=== PATIENT | female | born 1940 | race Caucasian/White ===

== ENCOUNTER 2017-02-18 11:19 | Emergency (ER) | payer MEDICARE ==
[~2017-02-18] VITALS: Ht 165.1 cm; Wt 76.4 kg
[~2017-02-18 11:19] MED LIST: ALBU18HF INH; ALBU2.5V4 INHALATION; ASPI-973 PO; ATEN25TA PO; ATOR20TA65 PO; FLUT12AE10 INH; FUR20 PO; HYDR-656 PO; LISI-567 PO; LORA0.5T PO; MAGN400T4 PO; RANI150C4 PO; TIOT18CA3 IH
[2017-02-18 11:21] VITALS: BP 180/110; PULSE 71; RESP 18; O2SAT 100
[2017-02-18] MEDS ORDERED: Ondansetron 2 mg/mL 2 mL Inj IVPUSH ONE (11:55)
--- NOTE | 2017-02-18 11:59 | ED.REPORT ---
HPI-Chest Pain 40 and Over Date of Service Feb 18, 2017 ED Provider: Jacinto Polk MD The patient is a 76 yo female with remote history of Takotsubo cardiomyopathy ( 2009), HTN, asthma, anxiety, and HLD who presentsto the ED for 3-day history of intermittent chest pressure and SOB. Patient reports that she has not been feeling well for the past 3-4 days and has had intermittent left-sided chest pressure. She is unsure how long each chest pressure episode lasts, but it usually resolves spontaneously. However, it is worse this morning. It does not radiate else where and rates 7/10. She took an aspirin 81mg and Nitro from her prior to arrival, which gave her mild relief, but the chest pressure still lingers. Associated symptoms include nausea, SOB, and dry cough. She admits to tingling in her extremities at baseline, but her feet feel "hot and tingling" currently. She denies diaphoresis, vomiting, headache, dizziness, palpitations, wheezes, edema, fever, or chills. She does have a history of anxiety and takes Ativan 0.5mg BID. Patient admits to similar symptoms and subsequently underwent a stress test in [place], which was normal. She denies history of PE/DVT or recent travel. Nursing Notes Stated Complaint: CHEST PAIN Chief Complaint: Chest Pain Nursing Notes Reviewed: Yes Allergies: Coded Allergies: amitriptyline (Verified Allergy, Unknown, 02/18/17) citalopram (Verified Allergy, Unknown, 02/18/17) naproxen (Verified Allergy, Unknown, 02/18/17) Scheduled Aspirin (Aspirin) 81 Mg Tablet 81 MG PO DAILY Atenolol (Atenolol) 25 Mg Tablet 12.5 MG PO DAILY Atorvastatin Calcium (Atorvastatin Calcium) 20 Mg Tablet 20 MG PO HS Furosemide (Furosemide) 20 Mg Tab 20 MG PO DAILY Lisinopril (Lisinopril) 20 Mg Tablet 40 MG PO DAILY Magnesium Oxide (Magnesium Oxide) 400 Mg Tablet 400 MG PO DAILY Ranitidine (Ranitidine) 150 Mg Capsule 150 MG PO DAILY Tiotropium [place] (Spiriva) 18 Mcg Cap.w.dev 18 MCG IH DAILY Scheduled PRN Albuterol Neb Soln (Albuterol Neb Soln) 2.5 Mg/3 Ml Vial.neb 2.5 MG INHALATION Q4H PRN PRN For Shortness of Breath Albuterol Sulfate (Ventolin HFA Inhaler) 200 Puff/18 Gm Inhaler 1 PUFF INH Q4 PRN PRN For Wheezing Fluticasone Propionate (Flovent HFA 220 mcg) 12 Gm Aer.w.adap 2 PUFFS INH BID PRN PRN For Shortness of Breath Lorazepam (Lorazepam) 0.5 Mg Tablet 0.5-1 MG PO BID PRN PRN For Anxiety hydrOXYzine Hcl (HydrOXYzine Hcl) 25 Mg Tablet 25 MG PO q6 hours PRN PRN For Itching General Time Seen by MD: 11:45 Chief Complaint Chest pressure Hx Obtained From: Patient, Spouse Arrived By: Walk-in Sudden in Onset?: Yes Onset Occurred: Just prior to arrival Symptom Duration: Intermittent Location: : Chest left Quality: Pressure Radiation: : Does not radiate Migration/Movement: Reports: None Severity: Current: Pain level 7 out of 10 Severity: Maximum: Pain level 10 out of 10 Associated with: Reports: Cough, non-productive, Nausea, Numbness/Tingling, Shortness of Breath, Denies: Diaphoresis, Dizziness, Fatigue, Fever, Palpitations, Vomiting, Wheezing Pertinent Negative: Pt denies other symptoms Relieved by: Nitroglycerin at home x 1 Pertinent Negative: Exacerbated by nothing Recent Healthcare: No recent hospitalization, Recent doctor visit Similar Sx Previous: Yes Risk Factors )( CAD Risk Stratification Hyperlipidemia Hypertension Risk factors reviewed )( PE Risk Stratification No risk factors Aspirin for ACS Aspirin Last 24 Hrs: 81 mg Past Medical History Past Medical History Notes: PCP: Dr. Tatiana Arambula Past Medical History Takotsubo syndrome Anxiety Reports: Asthma, COPD, Hypertension Past Surgical History Denies Smoking History Former Smoker (quit in 1974) Social History Alcohol Use: Denies alcohol use Drug Use: Denies drug use Other Social History: Good social support, Ambulatory Status Independent Review of Systems Basic Review of Systems Eyes: Vision NL, No discharge : No dysuria, No frequency Hematologic: No bleeding, No bruising Constitutional: Denies: Chills, Fatigue, Fever Cardiovascular: Reports: Chest pain, Denies: Dyspnea on exertion, Edema, Orthopnea, Palpitations, Syncope GI: Reports: Nausea, Denies: Anorexia, Constipation, Diarrhea, Dysphagia, Vomiting Neurologic: Denies: Abnormal movement, Bladder dysfunction, Bowel dysfunction, Change LOC, Confusion, Dizziness, Focal weakness, Headache, Lightheaded, Numbness, Weakness Psychiatric: Reports: Anxiety, Stress, Denies: Agitation, Confusion, Delusional, Depression Complete sys rev & neg: except as marked. Physical Exam Initial Vital Signs Vital Signs (First) Date Time Temp Pulse Resp B/P Pulse Ox O2 Delivery O2 Flow Rate FiO2 02/18/17 11:21 36.9 71 18 180/110 100 Room Air Initial VS: Reviewed Head / Eyes: Atraumatic, Normocephalic, PERRL ENT: Mucous membranes moist, Conjunctiva normal, No scleral icterus Neck: Supple, Non-tender, Full range of motion Back: No CVA tenderness Extremities: Vascular intact, Neuro intact, No swelling, No tenderness Skin: Warm, Dry, No cyanosis Neurologic: Alert, Oriented, Nonfocal Psychiatric: Behavior normal, Normal thought content General/Constitutional: Awake, Alert, Well developed, Well hydrated, Well nourished Distress / Hydration: Positive: Distress mild Behavior: Positive: Anxious Respiratory / Chest: Atraumatic, Breath sounds NL, Breath sounds = bilat, No respiratory distress, No rales, No rhonchi, No wheezing, No retractions Chest Wall / Ribs: Positive: Chest tender upper L Mild chest tenderness to palpation in the left 3rd-5th intercostal Cardiovascular: Heart rate NL, Regular rhythm, Heart sounds NL, No murmurs, Cap refill not delayed, Peripheral circulation NL Abdomen: Atraumatic, Soft, Non-tender, No guarding, No rebound, BS normoactive , No distention Neck: Atraumatic, Supple, No adenopathy, No swelling, Non-tender, No JVD Neurologic: Oriented X3, Speech NL, No motor deficits, No sensory deficits, CN II - XII intact Psychiatric: Judgment/insight NL, Thought content NL Abnormal Mood/Affect: Positive: Anxious, Depressed Interpretation & Diagnostics Lab Results Interpretation Result Diagram: 02/18/17 1150 02/18/17 1150 Test 02/18/17 11:49 02/18/17 11:50 02/18/17 15:02 Pro-B-Type Natriuretic Peptide 569.5pg/mL (0-738) White Blood Count 7.7th/mm3 (3.8-10.1) Red Blood Count 4.04mil/mm3 (3.90-5.20) Hemoglobin 11.7g/dL (12.0-15.6) Hematocrit 34.4% (35.0-46.0) Mean Corpuscular Volume 85.1fL (81-100) Mean Corpuscular Hemoglobin 29.0pg (27.0-35.0) Mean Corpuscular Hemoglobin Concent 34.0% (32.0-37.0) Red Cell Distribution Width 12.3% (12.3-15.4) Platelet Count 187bil/L (150-400) Neutrophils (%) (Auto) 45.6% (40-74) Lymphocytes (%) (Auto) 41.4% (14-46) Monocytes (%) (Auto) 10.6% (4-12) Eosinophils (%) (Auto) 1.4% (0-5) Basophils (%) (Auto) 0.7% (0-3) Sodium Level 126mEq/L (134-144) Potassium Level 4.5mEq/L (3.5-5.2) Chloride Level 92mEq/L (97-108) Carbon Dioxide Level 20mmol/L (18-29) Blood Urea Nitrogen 17mg/dL (8-27) Creatinine 0.74mg/dL (0.57-1.00) Estimat Glomerular Filtration Rate 109mL/min (>59) Glucose Level 89mg/dL (60-99) Calcium Level 9.3mg/dL (8.5-10.1) Magnesium Level 1.8mg/dL (1.6-2.6) Total Bilirubin 0.4mg/dL (0.0-1.2) Aspartate Amino Transf (AST/SGOT) 15U/L (0-50) Alanine Aminotransferase (ALT/SGPT) 9U/L (0-32) Alkaline Phosphatase 58U/L (25-165) Total Protein 7.1g/dL (6.4-8.4) Albumin 4.0g/dL (3.4-5.0) Hold Haider Top Tube Received (Received) Troponin T < 0.010ug/L (0.0-0.011) Lab Results Interpretation: Hyponatremia, but not significantly different than previous values. BNP negative Trop negative x 2 ECG Interpretation Time: 11:57 Normal ECG Interpretation: Normal ECG w/ rate of... (68), Normal rate, Normal sinus rhythm, No acute ischemic changes, No change from prior ECGs X-Ray Chest Interpretation Chest Xray Interpretation: IMPRESSION: 1. Borderline enlargement of the heart. No overt heart failure or definite pneumonia. 2. Calcific tendinitis of the shoulders. Dictated by: Edgardo Egan M.D. on 02/18/2017 at 11:36 Approved by: Edgardo Egan M.D. on 02/18/2017 at 11:37 View: Portable Interpretation / Wet Read by: Interpret - Radiologist Re-Eval/Medical Decision Med Decision/Clinical Course 76 yo female with remote history of Takotsubo cardiomyopathy (2009), HTN, asthma , anxiety, and HLD who presentsto the ED for 3-day history of intermittent chest pressure and SOB. This morning, the chest pressure is worse and more constant. She took an ASA 81mg and Nitro x1 at home with mild relief. Patient admits to persistent SOB, worse with exertion, and intermittent chest pressure for several months. She was admitted to the hospital for similar symptoms in 2015. She was recommended to have a Karol scan here at that time, but she refused because she would like to have her regular bridge expert in [place] perform the test. She subsequently underwent a nuclear stress test in 07/2016, which was normal per the patient and stated in her recent bridge expert note on . The patient also sees Dr. Talbot (pulmonology) and had a CT angiogram that ruled out PE in 11/2016. She continues to denies any risks for PE, and thus no PE workups were pursued today. On exam, patient initially presented with dyspnea at rest and complaint of left- sided chest pressure. Her BP was elevated at 180/110. She was found to have chest tenderness on palpation on the left 3rd-5th intercostal space. However, the chest pain does not bother the patient as much as the pressure. EKG: chronic LBBB and normal rhythm/rate of 68. No acute changes compared to previous EKG. Labs: significant for hyponatremia, which is chronic as well. Trop negative x2. The rest of the labs were normal. Normal BNP. CXR: borderline cardiomegaly, but no overt CHF or pneumonia. In the ER, patient was given Nitro SL x 2, ASA for a total of 324mg, Lorazepam 0.5mg, and Morphine 0.2mg IV. Patient reports significant improvement of her chest pressure and SOB. Her symptoms pretty much return to baseline. Shared- decision making with the patient and her about the decision to admission vs. discharge. Patient opted to be discharged and will follow up with PCP, cardiology, and pulmonology. Due to insurance reason, she plans to schedule an appointment with a bridge expert at [facility], likely Dr. Ackerman. All questions were answered and the patient was discharged in improved condition. Source of Hx: Old records, Family Time of Eval: 13:05 Patient Status: Condition improved Re-Evaluation/Progress Note: Patient reports improvement of the SOB and Chest pressure, but still have some pressure on her chest. Time of Eval: 14:00 Patient Status: Condition improved Re-Evaluation/Progress Note: Patient states that her symptoms have significantly improved compared to this morning and is pretty much at her baseline. She just does not understand why she keeps having CP and SOB. Her cardiac and respiratory workups have been inconclusive. Given the persistence of her chest pressure, we will repeat the second Trop and give her a dose of Morphine. Time of Eval: 15:50 Patient Status: Condition improved Re-Evaluation/Progress Note: Patient reports improvement of the chest pressure with the Morphine. She requests to be discharged. Second Trop came back negative. All questions were answered. Counseled Regarding: Diagnosis, Lab results, Need for follow-up, When/why to return to ED Discharge & Departure Shift Change Sign-Out Response to Therapy: Improved Primary Impression: Chest pressure Additional Impression: Dyspnea Dyspnea type: shortness of breath Qualified Code: R06.02 - Shortness of breath Disposition: Home Discharge Condition All VS Reviewed: Yes Condition: Improved Patient Instructions: Chest Pain (ED) Additional Instructions: You were seen in the ER for evaluation of the chest pressure and shortness of breath. Although the cause of your symptoms is unclear at this point, your labs are reassuring. There is no evidence of acute heart issues based on your labs and EKG. It is possible that the cause of your symptoms are due to lung disease , but this needs to be followed up as outpatient. Please follow up with your primary care doctor in 1-2 weeks. If you would like to see Dr. Ackerman here, you will need a referral. Follow up with Dr. Parimi if your shortness of breath persists. Continue to use all the inhalers as directed. Your sodium is low today, but not significantly different than the previous labs. Please restrict your daily fluid intake to 1.5L per day. Check your blood pressure regularly and weigh yourself daily if possible. Go to the ER if your chest pressure worsens or if you develop severe headache, dizziness, nausea, vomiting, or change in mental status. Referrals: Tatiana Arambula (PCP) Attending Statement The patient was seen and examined together with Dr. Boles on 02/18/17 and I agree with the history, exam and plan as outlined in the note above. copies to: Tatiana Arambula Ngochanh H DO Feb 18, 2017 11:59 Jacinto Polk MD Feb 18, 2017 16:17
[2017-02-18 12:03] VITALS: BP 180/65; PULSE 64; RESP 15; O2SAT 100
[2017-02-18 12:06] LABS: BASOPHILS % (AUTO) 0.7 % (0-3); EOSINOPHILS % (AUTO) 1.4 % (0-5); MONOCYTES % (AUTO) 10.6 % (4-12); Mean Corpuscular Volume 85.1 fL (81-100); NEUTROPHILS % (AUTO) 45.6 % (40-74); Platelet Count 187 bil/L (150-400)
[2017-02-18] MEDS ORDERED: LORazepam 0.5 mg Tablet PO ONE (12:10)
[2017-02-18 12:18] VITALS: BP 143/70; PULSE 63; RESP 13; O2SAT 97
[2017-02-18 12:23] LABS: TROPONIN T 0.01 ug/L (0.0-0.011)
[2017-02-18 12:36] VITALS: BP 148/75
--- NOTE | 2017-02-18 12:39 | DRSVH ---
PROCEDURE: X-RAY CHEST ONE VIEW, PORTABLE ([id number]) INDICATIONS: CHEST PAIN TECHNIQUE: One view of the chest was acquired. COMPARISON: [facility], CR, XR CHEST 1VW (PORTABLE), 05/31/2016, 16:37. FINDINGS: Surgical changes and devices: Prior dental work is incidentally noted on this exam, but not adequatel y evaluated. Lungs and pleura: No pleural effusions or pneumothorax. Lungs are clear. Mediastinum: Mediastinal contours appear normal. Heart size is borderline enlarged. There is aorti c atherosclerosis. Bones and chest wall: No suspicious bony lesions. Calcific tendinitis of the bilateral shoulders is noted. Overlying soft tissues appear unremarkable. IMPRESSION: 1. Borderline enlargement of the heart. No overt heart failure or definite pneumonia. 2. Calcific tendinitis of the shoulders. Dictated by: Edgardo Egan M.D. on 02/18/2017 at 11:36 Approved by: Edgardo Egan M.D. on 02/18/2017 at 11:37
[2017-02-18 12:54] LABS: Magnesium 1.8 mg/dL (1.6-2.6)
[2017-02-18 16:25] VITALS: BP 129/60; PULSE 59; RESP 16; O2SAT 98
== END 2017-02-18 16:27 | disposition home or self-care (01) ==
LOC: SED 11:19
DX: R07.89 Other chest pain (principal); R06.02 Shortness of breath; R11.0 Nausea; R05 Cough; I10 Essential (primary) hypertension; F41.9 Anxiety disorder, unspecified; J45.909 Unspecified asthma, uncomplicated; J44.9 Chronic obstructive pulmonary disease, unspecified; E78.5 Hyperlipidemia, unspecified; Z79.82 Long term (current) use of aspirin; Z87.891 Personal history of nicotine dependence; Z88.8 Allergy status to other drugs, medicaments and biological substances
CPT/HCPCS: 36415; 71010; 80053; 83735; 83880; 84484; 85025; 93005; 96374; 99285; J2270